=== PATIENT | female | born 1930 | race African-American/Black ===

== ENCOUNTER 2020-08-02 09:31 | Outpatient (RCR) | payer MEDICARE ==
[2020-07-26 13:28] LABS: BASOPHILS # (AUTO) 0.1 (0.0-0.1); BASOPHILS % 1.1 % (0.0-1.0); EOSINOPHILS % 0.3 % (0.0-6.0); HEMATOCRIT 38.3 % (34.2-44.1); HEMOGLOBIN 12.3 g/dL (12.0-16.0); LYMPHOCYTES # (AUTO) 1.1 (1.0-3.2); LYMPHOCYTES % 16.7 % (18.0-39.1); MEAN CORPUSCULAR HEMOGLOBIN 24.4 pg (28-32); MEAN CORPUSCULAR HGB CONC 32.1 g/dL (31-35); MONOCYTES # (AUTO) 0.4 (0.2-0.8); MONOCYTES % 6.5 % (4.4-11.3); NEUTROPHILS # (AUTO) 4.7 (2.1-6.9); NEUTROPHILS % 75.2 % (38.7-80.0); PLATELET COUNT 239 x10e3/uL (140-360); RED BLOOD COUNT 5.04 x10e6/uL (3.6-5.1); RED CELL DISTRIBUTION WIDTH 16.9 % (11.7-14.4)
[2020-07-26 13:48] LABS: ALBUMIN 4.3 g/dL (3.5-5.0); ALBUMIN/GLOBULIN RATIO 1.1 (0.8-2.0); ANION GAP 15.5 mmol/L (8-16); CALCIUM 9.9 mg/dL (8.4-10.2); CREATININE, SERUM 1.42 mg/dL (0.57-1.11); POTASSIUM 4.5 mmol/L (3.5-5.1)
[2020-08-02] MEDS ORDERED: LIDOCAINE/PRILOCAINE 2.5-2.5% KIT ONE (16:35)
[2020-08-02] MEDS ORDERED: MUPIROCIN 2% OINT 22 GM TUBE ONE (16:35)
== END 2020-08-16 ==
LOC: WCC 09:31
PROVIDERS: ATTEND Family Medicine
DX: S81.802A Unspecified open wound, left lower leg, initial encounter (principal); H40.9 Unspecified glaucoma; I48.91 Unspecified atrial fibrillation; K21.00 Gastro-esophageal reflux disease with esophagitis, without bleeding; R26.81 Unsteadiness on feet; W92.XXXA Exposure to excessive heat of man-made origin, initial encounter; Z85.01 Personal history of malignant neoplasm of esophagus
CPT/HCPCS: 36415; 80053; 83036; 84134; 85025; 85651; 87071; 87075; 87205

== ENCOUNTER 2020-08-30 09:45 | Outpatient (RCR) | payer MEDICARE | END 2020-09-16 | LOC: WCC 09:45 | PROVIDERS: ATTEND Family Medicine | DX: S81.802A Unspecified open wound, left lower leg, initial encounter (principal); H40.9 Unspecified glaucoma; I48.91 Unspecified atrial fibrillation; K21.00 Gastro-esophageal reflux disease with esophagitis, without bleeding; R26.81 Unsteadiness on feet; Z85.01 Personal history of malignant neoplasm of esophagus; W92.XXXA Exposure to excessive heat of man-made origin, initial encounter ==